=== PATIENT | female | born 1995 | race Caucasian/White ===

== ENCOUNTER 2017-04-07 15:37 | Emergency (ER) | payer OTHER ==
[~2017-04-07] VITALS: Ht 154.9 cm; Wt 54.0 kg
[~2017-04-07 15:37] MED LIST: LEXAPRO20 M1 PO; SEROQUEL50 M1 PO
[2017-04-07 16:24] LABS: ABSOLUTE BASOPHIL COUNT 0.1 /CUMM (0.0-0.2); ABSOLUTE GRANULOCYTE CT 10.2 /CUMM (1.4-6.5); ABSOLUTE LYMPH COUNT 1.6 /CUMM (1.2-3.4); ABSOLUTE MONOCYTE COUNT 0.5 /CUMM (0.10-0.60); BASOPHIL % 0.4 % (0.0-2.0); EOSINOPHIL % 0.3 % (0-5); GRANULOCYTE % 82.7 % (42.2-75.2); MEAN CORPUSCULAR HGB 27.8 PG (27.0-31.0); MEAN CORPUSCULAR HGB CONC 32.7 G/DL (33.0-37.0); MEAN CORPUSCULAR VOLUME 84.9 FL (81.0-99.0); MEAN PLATELET VOLUME 9.8 FL (7.4-10.4); PLATELET COUNT 233 /CUMM (130-400); RBC DISTRIBUTION WIDTH 13.9 % (11.5-14.5); RED BLOOD CELL CT 4.36 /CUMM (4.20-5.40); WHITE BLOOD CELL COUNT 12.4 /CUMM (4.8-10.8)
--- NOTE | 2017-04-07 18:46 | ED AMS/SEIZURE/WEAK/DIZZY ---
History of Present Illness General Chief Complaint: Dizziness Stated Complaint: DIZZY Source: patient Exam Limitations: no limitations Vital Signs & Intake/Output Vital Signs & Intake/Output Vital Signs Date Time Temp Pulse Resp B/P B/P Pulse O2 O2 Flow FiO2 Mean Ox Delivery Rate 04/075 60 20 113/70 100 Room Air 04/07 2008 98 Room Air 04/07 1552 97.7 66 18 114/73 97 Room Air Allergies Coded Allergies: aripiprazole (From [employer]) (Severe, CANT CONTROL MOVEMENTS 01/04/17) amoxicillin (Mild, RASH 01/04/17) Reconcile Medications No Known Home Medications Triage Note: PT TO ER C/C SYNCOPE X 1 TODAY AND DIZZINESS. PATIENT [facility] ON 04/03 FOR UTI S/S, DX WITH . HAS NOT SEEN OBGYN YET. LMP 02/28. OBGYN DR. GONZALEZ, APPT TOMORROW. Triage Nurses Notes Reviewed? yes Onset: Gradual Duration: hour(s): Timing: single episode today Injury Environment: home Severity: moderate LMP (ages 10-50): Feb 28, 2017 : Yes Patient currently breastfeeds: No HPI: 21yo female est 5 weeks presents to ED complaining of lower abdominal pain beginning today with one episode of "passing out". Patient states that she got up from sitting and walked to a nearby room when her vision went dark and she passed out. Patient is unsure if she totally lost consciousness however states that she had an immediate headache. Patient reports suprapubic abdominal pain beginning hours ago today described as moderate, midline. She also reports 5 days of diarrhea. Patient has had episodes of vomiting during the day however is generally not nauseous constantly. The patient denies dyspnea, chest pain, fevers, chills, vaginal bleeding or spotting. (Ema PA,Yanci Servin) Past History Travel History Traveled to [place] past 21 day No Medical History Any Pertinent Medical History? see below for history Neurological: NONE EENT: NONE Cardiovascular: NONE Respiratory: asthma Gastrointestinal: NONE Hepatic: NONE Renal: NONE Musculoskeletal: NONE Psychiatric: anxiety, depression, ADHD MOOD DISORDER PTSD Endocrine: NONE Blood Disorders: NONE Cancer(s): NONE CUTTING INSPECTOR/Reproductive: NONE Surgical History Surgical History: non-contributory Psychosocial History Who do you live with Other (see notes) What is your primary language Yi Tobacco Use: Never used Family History Hx Contributory? No (Yanci Mcleod) Review of Systems Review of Systems Constitutional: Reports: no symptoms. EENTM: Reports: no symptoms. Respiratory: Reports: no symptoms. Cardiovascular: Reports: no symptoms. GI: Reports: see HPI. Genitourinary: Reports: see HPI. Musculoskeletal: Reports: no symptoms. Skin: Reports: no symptoms. Neurological/Psychological: Reports: see HPI. Hematologic/Endocrine: Reports: no symptoms. Immunologic/Allergic: Reports: no symptoms. All Other Systems: Reviewed and Negative (Yanci Mcleod) Physical Exam Physical Exam General Appearance: well developed/nourished, no apparent distress, alert, awake Head: atraumatic, normal appearance Eyes: Bilateral: normal appearance. Ears, Nose, Throat: hearing grossly normal Neck: normal inspection, supple, full range of motion Respiratory: normal breath sounds, no respiratory distress, lungs clear Cardiovascular: regular rate/rhythm Gastrointestinal: normal bowel sounds, soft, no organomegaly, suprapubic tenderness Back: normal inspection, normal range of motion Extremities: normal range of motion Neurologic/Psych: awake, alert, oriented x 3, rigger chief II-XII nml as tested Skin: intact, normal color, warm/dry Core Measures ACS in differential dx? No CVA/TIA Diagnosis No Sepsis Present: No Sepsis Focused Exam Completed? No (Yanci Mcleod) Progress Differential Diagnosis: arrythmia, anemia, dehydration, drug intoxication, hypoglycemia, intracranial Hem., intracranial mass/tumor, postural hypotension, presyncope, UTI/pyelo, threatened , ectopic Plan of Care: Orders Procedure Date/time Status MISTAKE 04/07 191 Active HUMAN BETA HCG TITRE 04/07 1553 Complete COMPREHENSIVE METABOLIC PANEL 04/07 1553 Complete CBC WITHOUT DIFFERENTIAL 04/07 1553 Complete EKG 04/07 1553 Active URINE 04/07 1540 Complete URINALYSIS 04/07 1540 Complete Laboratory Tests 04/07/17 1721: Urinalysis HEAVY H, Urine Color YEL, Urine Clarity TURBD H, Urine pH 6.0, Ur Specific [place] >= 1.030, Urine Protein TRACE H, Urine Ketones 40 H, Urine Nitrite NEG, Urine Bilirubin SMALL H, Urine Urobilinogen 0.2, Ur Leukocyte Esterase NEG, Ur Microscopic SEDIMENT EXAMINED, Urine RBC RARE, Urine WBC RARE, Ur Epithelial Cells FEW, Urine Bacteria FEW H, Urine Hemoglobin NEG, Urine Glucose NEG, Urine Test POSITIVE 04/07/17 1603: Anion Gap 16, Estimated GFR > 60, BUN/Creatinine Ratio 16.7, Glucose 94, Calcium 9.4, Total Bilirubin 0.3, AST 17, ALT 36, Alkaline Phosphatase 75, Total Protein 7.0, Albumin 4.4, Globulin 2.6, Albumin/Globulin Ratio 1.7, Beta HCG, Quant 2077.3, CBC w Diff NO MAN DIFF REQ, RBC 4.36, MCV 84.9, MCH 27.8, RDW 13.9, MPV 9.8, Gran % 82.7 H, Lymphocytes % 12.6 L, Monocytes % 4.0, Eosinophils % 0.3, Basophils % 0.4, Absolute Granulocytes 10.2 H, Absolute Lymphocytes 1.6, Absolute Monocytes 0.5, Absolute Basophils 0.1, PUBS MCHC 32.7 L Ultrasound results are within normal limits, no adnexal mass. IUP could not be confirmed, likely due to patient's early . Patient has a scheduled appointment with her BILLING AND INSURANCE COORDINATOR tomorrow. She was medicated with 1 L of fluids and feels ready to go home at this time. Patient's blood work is within normal limits. No orthostatic hypotension, patient ambulating without difficulty here in the emergency department.. She is sitting comfortably in stretcher, using her phone while waiting results, nontoxic-appearing. The patient agrees with the plan of care. The patient was discussed with Dr. Collins who agrees with this plan. Diagnostic Imaging: Viewed by Me: Ultrasound. Discussed w/RAD: Ultrasound. Radiology Impression: PATIENT: SANTINO STEVENS PRESENT AGE: 21 PATIENT ACCOUNT NO: [id number] : 97 LOCATION: [facility] ORDERING PHYSICIAN: Yanci PA SERVICE DATE: 04/07/17 EXAM TYPE: US - US TRANSVAG EXAMINATIONS: ULTRASOUND PELVIC, COMPLETE AND DOPPLER INTERROGATION CLINICAL INFORMATION: Lower abdominal pain. . Evaluate for IUP. COMPARISON: None. TECHNIQUE: Transabdominal and transvaginal imaging was performed. Transvaginal imaging was performed for further evaluation of the endometrium and adnexa. Doppler interrogation spectral analysis was performed. FINDINGS: The uterus is of normal size and echogenicity measuring 8.0 x 4.2 x 5.0 cm. A regular homogeneous endometrium is identified measuring 0.3 cm. The cervical length is 1.9 cm. Both ovaries are of normal size and echogenicity. The right measures 3.0 x 1.8 x 2.6 cm for a volume of 7.3 cc. The left measures 4.7 x 3.0 x 2.9 cm for a volume of 20.4 cc. Normal arterial and venous blood flow is present bilaterally. There is no pelvic free fluid. IMPRESSION: No discernible IUP; unremarkable pelvic ultrasound. DICTATED BY: Jm Kirby MD DATE/TIME DICTATED:04/07/171958 MACHINE PRESSER:EPIFANIO DATE/TIME TRANSCRIBED:04/07/171958 CONFIDENTIAL, DO NOT COPY WITHOUT APPROPRIATE AUTHORIZATION. <Electronically signed in Other Vendor System> SIGNED BY: Jm Kirby MD 04/07/172006 Initial ED EKG: sinus rhythm @63bpm, nonspecific ST changes (Ema PA,Yanci Servin) Departure Departure Disposition: HOME OR SELF CARE Condition: Stable Clinical Impression Primary Impression: Abdominal pain affecting Secondary Impressions: Qualifiers: Weeks of gestation: less than 8 weeks Qualified Code: Z3A.01 - Less than 8 weeks gestation of Referrals: Patient Has No Primary Care Dr (PCP/Family) Additional Instructions: Continue to drink plenty of fluids and rest. Follow-up with your BILLING AND INSURANCE COORDINATOR tomorrow. Return to the emergency Department with any worsening symptoms or other concerns. Please note that there might be incidental findings in your evaluation that are unrelated to the current emergency department visit. Please notify your primary care doctor about this emergency department visit in order to obtain and review all of the testing performed so that these incidental findings can be monitored as needed. If you had an x-ray performed, please understand that some fractures may not be seen on the initial set of x-rays. If your symptoms persist you might need a repeat set of x-rays to check for such a fracture. If you had a laceration evaluated, please understand that foreign bodies such as glass or wood may not be visible to the naked eye or on plain x-rays. If the wound becomes red, swollen, increasingly more painful or if there is any drainage from the wound, please have it reevaluated by a physician for the possibility of a retained foreign body. If you're unable to follow up as outlined in the discharge instructions please return to the emergency department. Thank you for choosing the [facility] Emergency Department for your care. It was a pleasure to serve you today. Departure Forms: Customer Survey General Discharge Information Prescriptions: Current Visit Scripts No Known Home Medications (Ema PA,Yanci Servin) PA/GOLF BALL TRIMMER Co-Sign Statement Statement: ED Attending supervision documentation- x I saw and evaluated the patient. I have also reviewed all the pertinent lab results and diagnostic results. I agree with the findings and the plan of care as documented in the PA's/GOLF BALL TRIMMER's documentation. [] I have reviewed the ED Record and agree with the PA's/GOLF BALL TRIMMER's documentation. [] Additions or exceptions (if any) to the PAs/GOLF BALL TRIMMER's note and plan are summarized below: [] (Dennis RENDON,Stephan)
--- NOTE | 2017-04-07 20:07 | ULTRASOUND REPORT ---
EXAMINATIONS: ULTRASOUND PELVIC, COMPLETE AND DOPPLER INTERROGATION CLINICAL INFORMATION: Lower abdominal pain. . Evaluate for IUP. COMPARISON: None. TECHNIQUE: Transabdominal and transvaginal imaging was performed. Transvaginal imaging was performed for further evaluation of the endometrium and adnexa. Doppler interrogation spectral analysis was performed. FINDINGS: The uterus is of normal size and echogenicity measuring 8.0 x 4.2 x 5.0 cm. A regular homogeneous endometrium is identified measuring 0.3 cm. The cervical length is 1.9 cm. Both ovaries are of normal size and echogenicity. The right measures 3.0 x 1.8 x 2.6 cm for a volume of 7.3 cc. The left measures 4.7 x 3.0 x 2.9 cm for a volume of 20.4 cc. Normal arterial and venous blood flow is present bilaterally. There is no pelvic free fluid. IMPRESSION: No discernible IUP; unremarkable pelvic ultrasound.
[2017-04-07 20:45] VITALS: BP 113/70
== END 2017-04-07 20:52 ==
LOC: ERH 15:37
PROVIDERS: Emergency Medicine
DX: O26.91 Pregnancy related conditions, unspecified, first trimester (principal); R10.30 Lower abdominal pain, unspecified; Z3A.01 Less than 8 weeks gestation of pregnancy
CPT/HCPCS: 76817; 81001; 81025; 93005; 93010; 96360